=== PATIENT | female | born 2000 | race Caucasian/White ===

== ENCOUNTER 2019-10-28 19:21 | Emergency (ER) | payer OTHER ==
[2019-10-28 19:37] VITALS: BP 103/56
--- NOTE | 2019-10-28 19:56 | ER Document Report ---
ED Medical Screen (RME) - General Chief Complaint: Medical Complaint Stated Complaint: POSS Time Seen by Provider: 10/28/19 19:52 Mode of Arrival: Ambulatory Information source: Patient Notes: 18-year-old female presents to ED for complaint of possible . She states her last menstrual period was September 07. She has a Nexplanon implant in. She states she took 2 home test both of which were positive and we are requesting a blood test to know whether she needs to get her Nexplanon removed. Patient is alert oriented respirations regular nonlabored speaking in full sentences. She states she is sexually active but has no other symptoms. We will draw hCG level in the emergency room and treat accordingly. - HPI Onset: Other - No symptoms she has not had a. Since September 07 she took some home tests that were positive she has a Implanon Quality of pain: No pain Severity: None Pain Level: Denies Associated Symptoms: None Exacerbated by: Denies Relieved by: Denies Similar symptoms previously: No - Related Data Smoking: Non-smoker Frequency of alcohol use: None Drug Abuse: None Allergies/Adverse Reactions: No Known Allergies Allergy (Verified 10/28/19 20:06) Past Medical History - General Information source: Patient - Social History Cigarette use (# per day): No Frequency of alcohol use: None Drug Abuse: None Family history: Reviewed & Not Pertinent - Past Medical History Cardiac Medical History: Reports: None Pulmonary Medical History: Reports: None EENT Medical History: Reports: None Neurological Medical History: Reports: None Endocrine Medical History: Reports: None Renal/ Medical History: Reports: None Malignancy Medical History: Reports: None GI Medical History: Reports: None Musculoskeltal Medical History: Reports None Skin Medical History: Reports None Psychiatric Medical History: Reports: None Traumatic Medical History: Reports: None Infectious Medical History: Reports: None Surgical Hx: Negative Past Surgical History: Reports: None - Immunizations Immunizations up to date: Yes Hx Diphtheria, Pertussis, Tetanus Vaccination: Yes Review of Systems - Review of Systems Constitutional: No symptoms reported EENT: No symptoms reported Cardiovascular: No symptoms reported Respiratory: No symptoms reported Gastrointestinal: No symptoms reported Genitourinary: No symptoms reported Female Genitourinary: Last menstrual period - 09/08/2019 Musculoskeletal: No symptoms reported Skin: No symptoms reported Hematologic/Lymphatic: No symptoms reported Neurological/Psychological: No symptoms reported Physical Exam - Vital signs Vitals: Temp Pulse Resp BP Pulse Ox 98.5 F 94 12 103/56 L 100 10/28/19 19:36 10/28/19 19:36 10/28/19 19:36 10/28/19 19:36 10/28/19 19:36 Interpretation: Normal - General General appearance: Appears well, Alert - HEENT Head: Normocephalic, Atraumatic Eyes: Normal Pupils: PERRL - Respiratory Respiratory status: No respiratory distress Chest status: Nontender Breath sounds: Normal Chest palpation: Normal - Cardiovascular Rhythm: Regular Heart sounds: Normal auscultation Murmur: No - Abdominal Inspection: Normal Distension: No distension Bowel sounds: Normal Tenderness: Nontender Organomegaly: No organomegaly - Back Back: Normal, Nontender - Extremities General upper extremity: Normal inspection, Nontender, Normal color, Normal ROM, Normal temperature General lower extremity: Normal inspection, Nontender, Normal color, Normal ROM, Normal temperature, Normal weight bearing. No: Cory's sign - Neurological Neuro grossly intact: Yes Cognition: Normal Orientation: AAOx4 James Coma Scale Eye Opening: Spontaneous [place] Coma Scale Verbal: Oriented James Coma Scale Motor: Obeys Commands James Coma Scale Total: 15 Speech: Normal Motor strength normal: LUE, RUE, LLE, RLE Sensory: Normal - Psychological Associated symptoms: Normal affect, Normal mood - Skin Skin Temperature: Warm Skin Moisture: Dry Skin Color: Normal Course - Re-evaluation Re-evalutation: 10/28/19 20:27 Patient came to the emergency room because her last menstrual period was September 07. She states that she has a Nexplanon and she will need that taken out if she is . I have spoken with all the providers in the ER. They state that she will need to follow-up with the [facility] if her test is positive. I will wait for the test and then let the patient know whether it is positive or negative and that she will need to go to [facility] to get the Nexplanon removed. 10/28/19 21:16 hCG negative patient was discharged home. - Vital Signs Vital signs: Temp Pulse Resp BP Pulse Ox 98.5 F 94 12 103/56 L 100 10/28/19 19:53 10/28/19 19:36 10/28/19 19:36 10/28/19 19:36 10/28/19 19:36 Doctor's Discharge - Discharge Clinical Impression: Positive home test, Negative blood test for Condition: Stable Disposition: HOME, SELF-CARE Additional Instructions: You were seen today for positive home test. Your blood test was negative. You do not need to worry about removing your Nexplanon at this time as your test is negative FOLLOW-UP CARE: If you have been referred to a physician for follow-up care, call the physicians office for an appointment as you were instructed or within the next two days. If you experience worsening or a significant change in your symptoms, notify the physician immediately or return to the Emergency Department at any time for re-evaluation. Referrals: [facility] [Provider Group] - Follow up as needed
== END 2019-10-28 21:20 | disposition home or self-care (01) ==
LOC: ER 19:21
DX: Z32.02 Encounter for pregnancy test, result negative (principal)
CPT/HCPCS: 36415; 84702